=== PATIENT | female | born 1995 | race African-American/Black ===

== ENCOUNTER 2019-03-26 12:52 | Emergency (ER) | payer BC ==
[~2019-03-26] VITALS: Ht 157.5 cm; Wt 81.7 kg
[~2019-03-26 12:52] MED LIST: FLAGYL500 MG PO; MOBIC15 MG PO; ORAL BIRTH CONTROL
[2019-03-26] MEDS ORDERED: BACTRIM DS TAB1 EACH PO (13:41)
[2019-03-26] MEDS ORDERED: IBUPROFEN 800800 M1 PO (13:41)
[2019-03-26 14:12] VITALS: BP 110/81
== END 2019-03-26 14:13 | disposition home or self-care (01) ==
LOC: ER 12:52
DX: L02.01 Cutaneous abscess of face (principal)

== ENCOUNTER 2019-11-23 19:54 | Emergency (ER) | payer BC ==
[~2019-11-23] VITALS: Ht 157.5 cm; Wt 86.2 kg
--- NOTE | ~2019-11-23 | EKG ---
[facility] [place] [address] ELECTROCARDIOGRAM REPORT Name: RUDOLPH BLANK Room #: PRE M.R.#: [id number] Admission: Attend Phys: Discharge: Date of : [birth year] Report #: [id number] THIS REPORT FOR: cc: LINDA - Daisy family physician/PCP LINDA - Daisy family physician/PCP Lizzy Ball MD ~ THIS REPORT FOR: //name// Default Test Date: 2019-11-23 Test Time: 20:17:19 Pat Name: RUDOLPH BLANK Department: Room: Gender: F [employer] Administration Officer: DAISY : 1995 Requested By: Rashard Roldan Order Number: [id number] MD: Measurements Intervals [place] Rate: 63 P: -43 MS: 133 QRS: 5 QRSD: 103 T: 26 QT: 409 QTc: 419 Interpretive Statements Sinus rhythm RSR' in V1 or V2, probably normal variant No previous ECG available for comparison [email or web address] By: 16 16 Lizzy Ball MD /EPI
[~2019-11-23 19:54] MED LIST changes: +BACTRIM DS TAB1 EACH PO; +IBUPROFEN 800800 M1 PO
[2019-11-23] MEDS ORDERED: IBUPROFEN200 M1 PO (20:12)
[2019-11-23] MEDS ORDERED: PEPCID20 MG PO (20:54)
[2019-11-23 21:06] VITALS: BP 131/87
== END 2019-11-23 21:07 | disposition home or self-care (01) ==
LOC: ER 19:54
DX: K21.0 Gastro-esophageal reflux disease with esophagitis (principal); M54.6 Pain in thoracic spine; Z86.73 Personal history of transient ischemic attack (TIA), and cerebral infarction without residual deficits; Z79.899 Other long term (current) drug therapy